=== PATIENT | male | born 1985 | race Caucasian/White ===

== ENCOUNTER 2019-09-22 15:27 | Emergency (ER) | payer SELFPAY ==
[2019-09-22] MEDS ORDERED: NORMAL SALINE 1000 ML 1,000 ML IV ONE (16:07)
--- NOTE | 2019-09-22 16:10 | ER Document Report ---
ED Medical Screen (RME) - General Chief Complaint: Possible Overdose Stated Complaint: POSSIBLE OVERDOSE Time Seen by Provider: 09/22/19 16:05 Mode of Arrival: Wheelchair Information source: Patient, Parent Notes: 34-year-old male presented to ED for possible drug overdose of heroin. He is unable to tell me how much exactly what time he took the heroin. He states he states he also took pills opiates. He states he does smoke marijuana. He states he does not use meth or alcohol and sometimes smokes. His father is with him. He is very lethargic but he is able to wake up. He was sent over by [facility] for evaluation and stabilization. I have greeted and performed a rapid initial assessment of this patient. A comprehensive ED assessment and evaluation of the patient, analysis of test results and completion of medical decision making process will be conducted by an additional ED providers.
[2019-09-22] MEDS ORDERED: NALOXONE HCL INJ/PF 0.4 MG/1 ML SDV IV ONE (16:24)
[2019-09-22] MEDS ORDERED: NALOXONE HCL INJ 2 MG/2 ML DISP.SYRIN ONE ×3 (16:25→17:05)
--- NOTE | 2019-09-22 16:28 | ER Document Report ---
Doctor's Note Notes: 09/22/19 16:26 34-year-old male waiting in triage after provider initial assessment for labs and ID. NICKI Mcfarlane advised me to come look at patient to see some different chair. Patient was arousable with stimulation. Patient states that he took a small amount of heroin today. Discussed with patient that we are going to administering him Narcan. Lungs: CTA 09/22/19 16:27
[2019-09-22] MEDS ORDERED: NALOXONE HCL INJ 2 MG/2 ML DISP.SYRIN IV ONE ×3 (16:30→17:25)
[2019-09-22] MEDS ORDERED: ROPIVACAINE HCL 0.2% INJ/PF (2 MG/ML) 20 ML SDV IV ONE (16:47)
[2019-09-22] MEDS ORDERED: FLUMAZENIL INJ 0.5 MG/5 ML VIAL IV ONE (17:00)
[2019-09-22] MEDS ORDERED: FLUMAZENIL INJ 0.5 MG/5 ML VIAL ONE (17:01)
--- NOTE | 2019-09-22 17:03 | ER Document Report ---
ED Medical Screen (RME) - General Mode of Arrival: Wheelchair Information source: Parent TRAVEL OUTSIDE OF THE [place] IN LAST 30 DAYS: No - HPI Onset: Just prior to arrival Onset/Duration: Sudden, Persistent, Worse Quality of pain: Achy Severity: Moderate Pain Level: Denies Associated Symptoms: Weakness Exacerbated by: Movement, Deep breathing Relieved by: Denies Similar symptoms previously: Yes Recently seen / treated by doctor: No <YOSEF SHAY JR - Last Filed: 09/22/19 18:36> <JED HOUGH - Last Filed: 09/23/19 07:24> - General Chief Complaint: Possible Overdose Stated Complaint: POSSIBLE OVERDOSE Time Seen by Provider: 09/22/19 16:05 Notes: Patient Name: ALAN BAKER Date of : 87 Patient Status: Emergency Emergency Provider: YOSEF SHAY JR Date: 09/22/19 16:26 Initialization Date: 09/22/19 16:26 Doctor's Note Notes: 09/22/19 16:26 34-year-old male waiting in triage after provider initial assessment for labs and ID. NICKI Mcfarlane advised me to come look at patient to see some different chair. Patient was arousable with stimulation. Patient states that he took a small amount of heroin today. Discussed with patient that we are going to administering him Narcan. Lungs: CTA [facility] notes ED Medical Screen (RME) - General Chief Complaint: Possible Overdose Stated Complaint: POSSIBLE OVERDOSE Time Seen by Provider: 09/22/19 16:05 Mode of Arrival: Wheelchair Information source: Patient, Parent Notes: 34-year-old male presented to ED for possible drug overdose of heroin. He is unable to tell me how much exactly what time he took the heroin. He states he states he also took pills opiates. He states he does smoke marijuana. He states he does not use meth or alcohol and sometimes smokes. His father is with him. He is very lethargic but he is able to wake up. He was sent over by [facility] for evaluation and stabilization. my notes 34 year old white with family traveling from [facility] initially saw this patient and he was talking to her in front of his father without any Narcan or any other problems. Father reports while being driven home he was becoming very sluggish and his responses to them. He reports that them he uses heroin and has been using this for around 10 to 15 years. He admitted to his father that sometimes he also does some Xanax and other pills. He told Dana he had taken other opiate pills as well. Father reports he had a room at [facility] and was over there and when he was given a urinal cup he urinated into the toilet instead and was advised to come to the ER. [facility] advised he told staff pt had overdosed. (YOSEF SHAY JR) Past Medical History - General Information source: Parent - Social History Cigarette use (# per day): Yes Chew tobacco use (# tins/day): No Frequency of alcohol use: Occasional Drug Abuse: Heroin, Marijuana Lives with: Family Family history: Reviewed & Not Pertinent <YOSEF SHAY JR - Last Filed: 09/22/19 18:36> Review of Systems - Review of Systems Constitutional: See HPI, Weakness EENT: No symptoms reported Cardiovascular: No symptoms reported Respiratory: Cough Gastrointestinal: No symptoms reported Genitourinary: No symptoms reported <YOSEF SHAY JR - Last Filed: 09/22/19 18:36> Physical Exam - Vital signs Vitals: Resp Pulse Ox 23 H 100 09/22/19 16:52 09/22/19 16:52 Course - Laboratory Result Diagrams: 09/22/19 20:16 09/22/19 20:16 <JED HOUGH - Last Filed: 09/23/19 07:24> - Re-evaluation Re-evalutation: 09/23/19 01:21 Patient remained off of any Narcan for approximately 3 hours without any respiratory depression. Obtain chest x-ray with no findings. Patient medically cleared and discharged. Because [facility] accepts patient until 10 PM tonight reversing requested that we keep patient in ED until he can go to [facility]. 09/23/19 07:22 Given that unable to go to [facility] until tonight will have patient leave ED he can go to [facility] on his own recognizance at 10 PM tonight. Gave patient Narcan prescription to alert people with him that he carries. Gave patient extensive return to ED precautions which she demonstrated understanding of. (JED HOUGH) - Vital Signs Vital signs: Temp Pulse Resp BP Pulse Ox 14 121/63 94 09/23/19 05:00 09/22/19 22:34 09/23/19 05:00 - Laboratory Laboratory results interpreted by me: 09/22/19 09/22/19 09/22/19 17:19 20:16 20:16 Hgb 12.9 L Sodium 135.1 L Anion Gap 3 L Glucose 126 H AST 89 H ALT 112 H Total Protein 6.1 L Urine Ascorbic Acid 40 H Salicylates < 1.0 L Acetaminophen < 10 L - EKG Interpretation by Me Additional EKG results interpreted by me: 09/23/19 07:24 Heart rate 68, no significant ST elevations or depressions, no significant T wave abnormalities, QTc 422 (JED HOUGH) Doctor's Discharge <YOSEF SHAY JR - Last Filed: 09/22/19 18:36> <JED HOUGH - Last Filed: 09/23/19 07:24> - Discharge Clinical Impression: Overdose Qualifiers: Encounter type: initial encounter Injury intent: accidental or unintentional Qualified Code(s): T50.901A - Poisoning by unspecified drugs, medicaments and biological substances, accidental (unintentional), initial encounter Disposition: HOME, SELF-CARE Additional Instructions: Overdose Opioid overdose frequently causes , you should stop using opioids immediately to prevent further injury. After your evaluation and care, it is felt that your overdose is not likely to be harmful or of any significant co nsequences to you currently and you are being discharged. Although your overdose does not seem to be of any danger to you at this time, if you develop any unusual or unexpected symptoms after your discharge, you should return to the Emergency Department immediately for re-evaluation including trouble breathing, fever, chest pain, tremors, seizure, or any other worsening or alarming symptoms. Go back to [facility] at 10 pm for admission. Follow-up with primary doctor within 1 week. Prescriptions: Naloxone HCl [Narcan] 4 mg NS ASDIR PRN #2 spray PRN Reason:
[2019-09-22] MEDS ORDERED: NORMAL SALINE 500 ML with NALOXONE HCL 2 MG IV PRN ×2 (17:25)
[2019-09-22 18:18] LABS: APPEARANCE,URINE CLEAR; BILIRUBIN,URINE NEGATIVE (NEGATIVE); COLOR,URINE YELLOW; GLUCOSE, URINE NEGATIVE (NEGATIVE); KETONES,URINE NEGATIVE (NEGATIVE); LEUKOCYTE ESTERASE,URINE NEGATIVE (NEGATIVE); NITRITE,URINE NEGATIVE (NEGATIVE); PROTEIN,URINE NEGATIVE (NEGATIVE); UROBILINOGEN,URINE NEGATIVE mg/dL (<2.0)
[2019-09-22 18:37] LABS: URINE AMPHETAMINES SCREEN NEGATIVE; URINE BARBITURATES SCREEN NEGATIVE; URINE COCAINE SCREEN NEGATIVE; URINE METHADONE SCREEN NEGATIVE; URINE PHENCYCLIDINE SCREEN NEGATIVE
[2019-09-22 18:40] LABS: URINE BENZODIAZEPINES SCREEN UNCONFIRMED POSITIVE; URINE MARIJUANA (THC) SCREEN UNCONFIRMED POSITIVE
[2019-09-22 20:28] LABS: ABSOLUTE EOSINOPHILS # (AUTO) 0.1 10^3/uL (0.0-0.6); ABSOLUTE LYMPHOCYTES (AUTO) 1.8 10^3/uL (0.5-4.7); ABSOLUTE MONOCYTES (AUTO) 0.5 10^3/uL (0.1-1.4); ABSOLUTE NEUT (AUTO) 6.4 10^3/uL (1.7-8.2); BASOPHILS % (AUTO) 0.3 % (0-2); EOSINOPHILS % (AUTO) 1.1 % (0-6); HEMATOCRIT 39.2 % (37.9-51.0); HEMOGLOBIN 12.9 g/dL (13.5-17.0); LYMPHOCYTES % (AUTO) 20.1 % (13-45); MEAN CORPUSCULAR VOLUME 88 fl (80-97); MONOCYTES % (AUTO) 5.4 % (3-13); PLATELET COUNT 215 10^3/uL (150-450); RED BLOOD COUNT 4.45 10^6/uL (4.35-5.55); SEGMENTED NEUTROPHILS % (AUTO) 73.1 % (42-78); TOTAL CELLS COUNTED % (AUTO) 100 %; WHITE BLOOD COUNT 8.8 10^3/uL (4.0-10.5)
[2019-09-22 20:45] LABS: ALBUMIN 3.5 g/dL (3.5-5.0); ALKALINE PHOSPHATASE 87 U/L (38-126); ASPARTATE AMINO TRANSFERASE 89 U/L (17-59); BILIRUBIN,TOTAL 0.5 mg/dL (0.2-1.3); BLOOD UREA NITROGEN 18 mg/dL (7-20); CALCIUM 8.9 mg/dL (8.4-10.2); CARBON DIOXIDE 28 mmol/L (22-30); CHLORIDE 104 mmol/L (98-107); GLUCOSE 126 mg/dL (75-110); POTASSIUM 3.8 mmol/L (3.6-5.0); TOTAL PROTEIN 6.1 g/dL (6.3-8.2)
[2019-09-22 20:47] LABS: ACETAMINOPHEN < 10 ug/mL (10-30); ALCOHOL < 10 mg/dL (NONE DETECTED); SALICYLATE < 1.0 mg/dL (2.0-20.0)
[2019-09-22 20:50] LABS: ANION GAP 3 (5-19)
--- NOTE | 2019-09-22 22:05 | ER Document Report ---
ED General - General Chief Complaint: Overdose Stated Complaint: POSSIBLE OVERDOSE Time Seen by Provider: 09/22/19 16:05 Mode of Arrival: Wheelchair TRAVEL OUTSIDE OF THE [place] IN LAST 30 DAYS: No - HPI Notes: 34-year-old male history of heroin abuse presents with overdose. Patient was being brought to [facility] by father to enroll in drug treatment program and then patient became very obtunded and that he was rejected from [facility] and referred to ED. Came to ED brought in by father very obtunded with slow respirations. Was given several doses of Narcan with good effect with patient's respiratory rate normalizing and patient becoming more alert and saying "why did you do that now I feel like it "as per nursing notes. But then became obtunded again and was placed on Narcan drip for a few hours which was stopped within the last hour. Patient denies having any symptoms prior to being in the ED, denies having taken methadone. Patient denying all drug use. Patient also denies any cough, vomiting, fever, sick contacts, trauma, headache, neck pain. Past Medical History - General Information source: Patient, Parent - Social History Smoking Status: Unknown if Ever Smoked Cigarette use (# per day): Yes Chew tobacco use (# tins/day): No Frequency of alcohol use: Occasional Drug Abuse: Heroin, Marijuana Lives with: Family Family History: Reviewed & Not Pertinent Patient has homicidal ideation: No Review of Systems - Review of Systems -: Yes ROS unobtainable due to patient's medical condition Physical Exam - Vital signs Vitals: Resp Pulse Ox 23 H 100 09/22/19 16:52 09/22/19 16:52 - Notes Notes: PHYSICAL EXAMINATION: GENERAL: Diaphoretic young adult male mildly obtunded but easily aroused to touc h and voice. HEAD: Atraumatic, normocephalic. EYES: Pupils equal round and appropriate constriction, sclera anicteric, conjunctiva are normal. ENT: nares patent, moist mucous membranes. NECK: Normal range of motion, supple without lymphadenopathy LUNGS: Normal respiratory rate and effort, diffuse coarse rhonchi in bilateral lung pino, good air movement, no wheezing HEART: Regular rate and rhythm without murmurs ABDOMEN: Soft, nontender, no guarding, no masses EXTREMITIES: Normal range of motion, no pitting or edema. No cyanosis. NEUROLOGICAL: Obtunded, arouses to voice and light touch, + piloerection PSYCH: Normal mood, normal affect. SKIN: Warm, diaphoretic Course - Re-evaluation Re-evalutation: 09/22/19 22:03 Patient referred from drug treatment facility for drug overdose, multiple doses of Narcan and Narcan drip given with good effect, and now patient not severely obtunded and normal respiratory rate and effort. Patient denying drug use but this is unreliable, patient's drug screen is positive and known drug use history. Patient shows no other signs of infection, no cardiac history, no cardiac symptoms, diaphoresis and piloerection consistent with opioid withdrawal precipitated by Narcan. No signs of benzo withdrawal after flumazenil was given prior to my evaluation the patient. We continue to observe patient in ED off of Narcan. If unable to maintain adequate respiratory rate and effort after observation off of Narcan then will admit to ICU. Otherwise will keep patient in ED pending transfer back to [facility]. Cancel CT head as patient is easily arousable and able to give me history and has no headache and no signs of head trauma and was accompanied by father who also denies this. Ordered chest x-ray to assess for aspiration as patient has coarse breath sounds, but no indication to treat for pneumonia as patient was well before current overdose. 09/23/19 00:27 Patient has not required any additional Narcan in over 2 hours, respiratory rate and effort remain adequate, patient feels well, no findings on chest x-ray, patient ready for discharge and can follow-up at [facility] who say they have a bed available currently. Patient given return to ED precautions which he demo nstrated understanding of. - Vital Signs Vital signs: Temp Pulse Resp BP Pulse Ox 15 117/61 99 09/22/19 22:01 09/22/19 22:01 09/22/19 22:01 - Laboratory Result Diagrams: 09/22/19 20:16 09/22/19 20:16 Laboratory results interpreted by me: 09/22/19 09/22/19 09/22/19 17:19 20:16 20:16 Hgb 12.9 L Sodium 135.1 L Anion Gap 3 L Glucose 126 H AST 89 H ALT 112 H Total Protein 6.1 L Urine Ascorbic Acid 40 H Salicylates < 1.0 L Acetaminophen < 10 L - EKG Interpretation by Me Additional EKG results interpreted by me: 09/22/19 22:06 Heart rate 68, no significant ST elevations or depressions, no significant T wave abnormalities, QTc 422 Discharge - Discharge Clinical Impression: Overdose Qualifiers: Encounter type: initial encounter Injury intent: accidental or unintentional Qualified Code(s): T50.901A - Poisoning by unspecified drugs, medicaments and biological substances, accidental (unintentional), initial encounter Disposition: HOME, SELF-CARE Additional Instructions: Overdose Opioid overdose frequently causes , you should stop using opioids immed iately to prevent further injury. After your evaluation and care, it is felt that your overdose is not likely to be harmful or of any significant consequences to you currently and you are being discharged. Although your overdose does not seem to be of any danger to you at this time, if you develop any unusual or unexpected symptoms after your discharge, you should return to the Emergency Department immediately for re-evaluation including trouble breathing, fever, chest pain, tremors, seizure, or any other worsening or alarming symptoms. Go back to [facility] for admission. Follow-up with primary doctor within 1 week. Prescriptions: Naloxone HCl [Narcan] 4 mg NS ASDIR PRN #2 spray PRN Reason:
--- NOTE | 2019-09-22 22:28 | RADIOLOGY REPORT (SQ) ---
CLINICAL INDICATION: overdose coarse breath sounds. TECHNIQUE: A single portable AP view was obtained of the chest at 2218 hours. COMPARISON: None. FINDINGS: The cardiomediastinal silhouette is prominent. The lungs are grossly clear. No evidence of effusion or pneumothorax. The visualized bones are unremarkable. IMPRESSION: No evidence of active intrathoracic disease.
[2019-09-23 11:30] VITALS: BP 116/68
--- NOTE | 2019-09-23 17:59 | EKG REPORT ---
SEVERITY:- NORMAL ECG - SINUS RHYTHM : Confirmed by: Julia Peña MD 23-Sep-2019 17:58:55
== END 2019-09-23 10:30 | disposition home or self-care (01) ==
LOC: ER 15:27
DX: T40.1X1A Poisoning by heroin, accidental (unintentional), initial encounter (principal); F12.10 Cannabis abuse, uncomplicated
CPT/HCPCS: 93005; 96376; 99284; 96375; 96365; 96366; 36415; 80307 ×4; 85025; 80053; 81001; 71045; 93010; J3490; J2310; J7030; J7040